=== PATIENT | female | born 1995 | race Two or more races ===

== ENCOUNTER 2019-04-07 20:48 | Emergency (ER) | payer OTHER ==
[~2019-04-07] VITALS: Ht 162.6 cm; Wt 64.9 kg
--- NOTE | 2019-04-07 20:56 | NUR ---
PT BIBSELF C/O SYNCOPAL EPISODE. PT STATES WAS IN [place] AT [facility] AND WHEN SHE GOT OUT HAD SYNCOPAL EPISODE, DOES NOT REMEMBER EXACTLY WHAT HAPPENED. PT AXO4. RESPIRATIONS EVEN AND UNLABORED. PT PUT ON THE ROPE [employer]ACH[employer]PER[employer] AND PULSE OX. PENDING EVAL FROM ER .
--- NOTE | 2019-04-07 21:59 | NUR ---
Patient does not wish to proceed with medical care recommended by ALEXANDRO DAVILA. Patient given information related to possible complications, up to and including , which could occur as a result of leaving the hospital at this time. Patient verbalizes understanding of risks involved due to leaving against medical advice. Patient has signed AMA form.
[2019-04-07] MEDS ORDERED: IV NS 0.9% 1,000 ML BAG IV ONE (22:00)
[2019-04-07 22:01] VITALS: BP 122/79
== END 2019-04-07 22:08 | disposition left against medical advice (07) ==
LOC: ER 20:48
DX: R55 Syncope and collapse (principal)
CPT/HCPCS: 93005; 99283; J7030